=== PATIENT | male | born 1955 | race Caucasian/White ===

== ENCOUNTER 2020-11-23 12:12 | Emergency (ER) | payer MEDICARE ==
[~2020-11-23] VITALS: Ht 182.9 cm; Wt 72.0 kg
[2020-11-23 13:18] VITALS: BP 155/85
[2020-11-23] MEDS: LIDOCAINE 1% Multi-Dose 20 ML VIAL. INJ ONE (13:49)
[2020-11-23] MEDS: DIPH,PERTUSS(ACELL),TET VAC/PF 0.5 ML SYRINGE. VAX IM ONE (13:53)
--- NOTE | 2020-11-23 13:58 | RAD ---
EXAM: Right foot, 3 views. HISTORY: Laceration. COMPARISON: None. FINDINGS: 3 views of the right foot are obtained. There is a soft tissue defect involving the medial forefoot at the level of the first metatarsal head. There is a tiny radiodensity in this location whi ch may be a foreign body. There is minimal first metatarsal phalangeal joint osteoarthritis. IMPRESSION: 1. Laceration involving the medial forefoot. There may be tiny associated foreign body in this locati on. 2. Minimal first metatarsal phalangeal joint osteoarthritis. Electronically signed by: Tracey Chatterjee MD (11/23/2020 1:56 PM) [facility]
[2020-11-23] MEDS ORDERED: CIPR500T94 PO (15:27)
--- NOTE | 2020-11-23 15:28 | PHYS DOC ---
Past Medical History Past Medical History: COPD Past Surgical History: No Surgical History Smoking Status: Former Smoker Alcohol Use: None General Adult EDM: Chief Complaint: LACERATION/AVULSION HPI: HPI: Patient is a 65 year old male who presents to the ED today with right foot laceration that occurred after a grinding wheel snapped and cut his right foot, he had shoes on. Review of Systems: Review of Systems: Constitutional: Denies fever or chills. [] Musculoskeletal: Denies back pain or joint pain. [] Integument: Reports right foot laceration Neurologic: Denies headache, focal weakness or sensory changes. [] ] Psychiatric: Denies depression or anxiety. [] Heart Score: C/O Chest Pain: N/A Risk Factors: Risk Factors: DM, Current or recent (<one month) smoker, HTN, HLP, family history of CAD, obesity. Risk Scores: Score 0 - 3: 2.5% MACE over next 6 weeks - Discharge Home Score 4 - 6: 20.3% MACE over next 6 weeks - Admit for Clinical Observation Score 7 - 10: 72.7% MACE over next 6 weeks - Early Invasive Strategies Current Medications: Current Medications Medications (Trade) Dose Ordered Sig/Daisy Start Time Stop Time Status Last Admin Dose Admin Diphtheria/ Tetanus/Acell Pertussis (ADACEL TDap SYRINGE) 0.5 ml ONCE ONCE 11/23/20 13:45 11/23/20 13:46 DC 11/23/20 13:53 0.5 ML Lidocaine HCl (Lidocaine 1% 20ml Vial) 20 ml 1X ONCE 11/23/20 13:45 11/23/20 13:46 DC 11/23/20 13:49 20 ML Allergies: Allergies: Allergies Coded Allergies Type Severity Reaction Last Updated Verified No Known Drug Allergies 11/23/20 No Physical Exam: PE: Constitutional: Well developed, well nourished, no acute distress, non-toxic appearance. [] Skin: Right great toe just below the MTP joint with a laceration approximately 4 cm long, there is no tendon involvement. Full range of motion to the right foot. +2 right pedal pulse. Cap refill less than 2 seconds to right toes. Sensation intact to the right foot Back: No tenderness, no CVA tenderness. [] Extremities: No tenderness, no cyanosis, no clubbing, ROM intact, no edema. [] Neurologic: Alert and oriented X 3, normal motor function, normal sensory function, no focal deficits noted. [] Psychologic: Affect normal, judgement normal, mood normal. [] Current Patient Data: Vital Signs: Vital Signs Date Time Temp Pulse Resp B/P (MAP) Pulse Ox O2 Delivery O2 Flow Rate FiO2 11/23/20 13:18 98.0 84 16 155/85 (108) 96 Room Air 98.0 EKG: EKG: [] Radiology/Procedures: Radiology/Procedures: []PROCEDURE: FOOT RIGHT 3V EXAM: Right foot, 3 views. HISTORY: Laceration. COMPARISON: None. FINDINGS: 3 views of the right foot are obtained. There is a soft tissue defect involving the medial forefoot at the level of the first metatarsal head. There is a tiny radiodensity in this location which may be a foreign body. There is minimal first metatarsal phalangeal joint osteoarthritis. IMPRESSION: 1. Laceration involving the medial forefoot. There may be tiny associated foreign body in this location. 2. Minimal first metatarsal phalangeal joint osteoarthritis. Electronically signed by: Tracey Chatterjee MD (11/23/2020 1:56 PM) [facility] DICTATED and SIGNED BY: TRACEY CHATTERJEE MD DATE: 11/23/20 [id number] Laceration/Wound Repair Wound Location: Right foot Wound's Depth, Shape: Horizontal Wound Length (cm): Approximately 4 cm Wound Explored: Multiple foreign objects were removed from the laceration site Irrigated w/ Saline (ccs): 1000 Betadine Prep?: Yes Anesthesia: 1% of lidocaine Volume Anesthetic (ccs): 5 cc Wound Repaired With: Ethilon Suture Size/Type: 4.0/interrupted sutures Number of Sutures: 6 Progress : Wound was covered with nonstick dressing Course & Med Decision Making: Course & Med Decision Making Pertinent Labs and Imaging studies reviewed. (See chart for details) This is a 65-year-old male patient presented to the ED today with right foot laceration that was closed with stitches as noted in procedures. Discharged with antibiotics. Tetanus updated. Gay Disclaimer: Gay Disclaimer: This electronic medical record was generated, in whole or in part, using a voice recognition dictation system. Departure Departure Impression: Primary Impression: Laceration of right foot Qualified Codes: S91.311A - Laceration without foreign body, right foot, initial encounter Disposition: HOME / SELF CARE / HOMELESS Condition: STABLE Referrals: NO PCP (PCP) Follow-up with your primary care doctor or the ED in 7 to 10 days for stitches removal Patient Instructions: Laceration Care, Adult Additional Instructions: You have right foot laceration that was closed with stitches, the need to be removed in 7 to 10 days, you can come back to the ED or see your own doctor for removal. You can shower and wash your feet. Do not soak your feet. Please apply Neosporin to the laceration site twice a day. Please monitor the area for any signs of infection including but not limited to increased redness, warmth, yellow drainage from the area and return to the ED if they occur. Complete the prescribed antibiotics Scripts Ciprofloxacin Hcl (CIPRO) 500 Mg Tablet 1 TAB PO BID for 7 Days, #14 TAB 0 Refills Prov: MARIBEL MORALES APRN 11/23/20 MARIBEL MORALES APRN Nov 23, 2020 15:28
== END 2020-11-23 15:45 | disposition home or self-care (01) ==
LOC: ER 12:12
DX: S91.311A Laceration without foreign body, right foot, initial encounter (principal); R20.2 Paresthesia of skin; J44.9 Chronic obstructive pulmonary disease, unspecified; Z87.891 Personal history of nicotine dependence; Y29.XXXA Contact with blunt object, undetermined intent, initial encounter; Y93.89 Activity, other specified; Y92.89 Other specified places as the place of occurrence of the external cause; Y99.8 Other external cause status
CPT/HCPCS: 12002; 73630; 90471; 90715; 99283; J3490